=== PATIENT | female | born 1965 | race Caucasian/White ===

== ENCOUNTER 2024-02-04 13:50 | Emergency (ER) | payer BC, OTHER ==
[2024-02-04 13:56] VITALS: BP 139/90; PULSE 116; RESP 18; TEMP 98; BMI 30.9
[2024-02-04 15:02] LABS: BASO % 0.6 % (0-2.0); EOS % 0.2 % (0-4.5); HEMOGLOBIN 14.9 GM/dL (10.7-15.3); LYMPH % 11.9 % (8-40); MCH 32.6 pg (25.7-33.7); MCHC 34.7 g/dl (32.0-36.0); MEAN PLT VOLUME 7.4 fl (7.5-11.1); MONO % 5.6 % (3.8-10.2); NEUT % 81.7 % (42.8-82.8); PLATELET COUNT 425 10^3/uL (134-434); RBC 4.57 M/mm3 (3.60-5.2); RDW 12.9 % (11.6-15.6); WHITE BLOOD COUNT 11.1 K/mm3 (4.0-10.0)
[2024-02-04 15:03] LABS: URINE APPEARANCE CLOUDY; URINE BILIRUBIN NEGATIVE (NEGATIVE); URINE COLOR ORANGE; URINE GLUCOSE (UA) NEGATIVE (NEGATIVE); URINE KETONE TRACE (NEGATIVE); URINE LEUK ESTERASE 1+ (NEGATIVE); URINE NITRITE NEGATIVE (NEGATIVE); URINE PROTEIN 1+ (NEGATIVE)
[2024-02-04 15:08] LABS: HCG,QUALITATIVE URINE Negative
[2024-02-04 15:21] LABS: URINE RBC 50-100 /uL (0-23.9)
[2024-02-04 15:22] LABS: URINE BACTERIA rare /uL (0-1359)
[2024-02-04 15:31] LABS: ALBUMIN 4.4 g/dl (3.4-5.0); BLOOD UREA NITROGEN 10.2 mg/dL (7-18); CALCIUM 10.2 mg/dL (8.5-10.1)
[2024-02-04 15:35] LABS: CREATININE 0.9 mg/dL (0.55-1.3)
[2024-02-04 15:36] LABS: BILIRUBIN,TOTAL 0.6 mg/dL (0.2-1); TOT PROT 8.4 g/dl (6.4-8.2)
== END 2024-02-04 17:39 | disposition home or self-care (01) ==
LOC: JER 13:50
DX: N93.9 Abnormal uterine and vaginal bleeding, unspecified (principal); R93.89 Abnormal findings on diagnostic imaging of other specified body structures
CPT/HCPCS: 36415; 76830-TC; 80053; 81003; 84439; 84443; 84703; 85025; 87086; 87186; 99284-25